=== PATIENT | female | born 1950 | race Two or more races ===

== ENCOUNTER 2020-08-29 15:41 | Outpatient (CLI) | payer OTHER | END 2020-08-29 16:12 | disposition home or self-care (01) | LOC: RAD 15:41 | DX: M41.85 Other forms of scoliosis, thoracolumbar region (principal); R07.89 Other chest pain; M54.2 Cervicalgia; M54.41 Lumbago with sciatica, right side; M99.01 Segmental and somatic dysfunction of cervical region; M99.02 Segmental and somatic dysfunction of thoracic region; M99.03 Segmental and somatic dysfunction of lumbar region; M99.04 Segmental and somatic dysfunction of sacral region; M99.05 Segmental and somatic dysfunction of pelvic region ==

== ENCOUNTER 2020-11-10 16:03 | Outpatient (CLI) | payer OTHER | END 2020-11-10 16:16 | disposition home or self-care (01) | LOC: RAD 16:03 | DX: S72.142D Displaced intertrochanteric fracture of left femur, subsequent encounter for closed fracture with routine healing (principal); M25.531 Pain in right wrist; M25.532 Pain in left wrist; M25.561 Pain in right knee; M25.562 Pain in left knee; M25.641 Stiffness of right hand, not elsewhere classified; M25.642 Stiffness of left hand, not elsewhere classified; M25.571 Pain in right ankle and joints of right foot; M25.572 Pain in left ankle and joints of left foot ==

== ENCOUNTER 2021-11-19 16:02 | Outpatient (CLI) | payer OTHER | END 2021-11-19 16:03 | disposition home or self-care (01) | LOC: RAD 16:02 | DX: M54.2 Cervicalgia (principal); M99.01 Segmental and somatic dysfunction of cervical region; M25.511 Pain in right shoulder; M25.512 Pain in left shoulder ==

== ENCOUNTER 2021-11-26 23:02 | Emergency (ER) | payer OTHER ==
[~2021-11-26] VITALS: Ht 152.4 cm; Wt 42.6 kg
[2021-11-27] MEDS ORDERED: DICLOFENAC SOD100 MG PO ×2 (02:54)
== END 2021-11-27 03:02 ==
LOC: ER 23:02
DX: S62.617A Displaced fracture of proximal phalanx of left little finger, initial encounter for closed fracture (principal); S62.615A Displaced fracture of proximal phalanx of left ring finger, initial encounter for closed fracture; W18.30XA Fall on same level, unspecified, initial encounter; Y93.9 Activity, unspecified; Y92.019 Unspecified place in single-family (private) house as the place of occurrence of the external cause